=== PATIENT | female | born 1950 | race Two or more races ===

== ENCOUNTER 2023-04-30 20:32 | Inpatient (IN) | payer OTHER, MEDICAID ==
[~2023-04-30] VITALS: Ht 160 cm; Wt 177.8 kg
[2023-04-30] MEDS ORDERED: DexAMETHasone SOD PHOS 10MG/1ML VIAL INJ IV ONE (21:00)
[2023-04-30 22:09] LABS: Basophils # (auto) 0 10 ^3/uL (0-0.2); Basophils % (auto) 0.6 % (0.0-2.0); Eosinophils # (auto) 0 10 ^3/uL (0-0.8); Eosinophils % (auto) 0.2 % (0.0-7.0); Hemoglobin 16.1 g/dL (12.2-16.2); Lymphocytes # (auto) 0.6 10 ^3/uL (0.4-5.4); Lymphocytes % (auto) 14.6 % (10.0-50.0); Mean Corpuscular Hemoglobin 34.6 pg (28.0-32.0); Monocytes # (auto) 0.8 10 ^3/uL (0-1.3); Neutrophils % (auto) 67.6 % (37.0-80.0); Nucleated Red Blood Cells % 0.5 %; Red Blood Cells 4.64 10^6/uL (4.0-5.20); Red Cell Distribution Width 13.8 % (11.8-14.3); White Blood Cell 4.4 10^3/uL (4.4-10.8)
[2023-04-30 22:20] VITALS: PULSE 98; RESP 18; O2SAT 96
[2023-04-30 22:29] LABS: Alanine Aminotransferase 35 U/L (7-40); Albumin 3.9 g/dL (3.2-4.8); Alkaline Phosphatase 66 U/L (46-116); Anion Gap 8 (5-15); Aspartate Aminotransferase 54 U/L (13-40); BUN/Creatinine Ratio 10.3 (10.0-20.0); Bilirubin, Total 6.7 mg/dL (0.2-1.0); Blood Urea Nitrogen 9 mg/dL (9-23); Carbon Dioxide 25 mmol/L (20-30); Chloride 101 mmol/L (98-107); Glucose 201 mg/dL (74-106); Potassium 3.8 mmol/L (3.5-5.1); Sodium 134 mmol/L (136-145)
[2023-04-30 22:30] LABS: Lactic Acid w/Reflex 2.1 mmol/L (0.4-2.0); Total Protein 7.2 g/dL (5.7-8.2)
[2023-04-30 22:44] LABS: Rapid Influenza A Negative (Negative); Rapid Influenza B Negative (Negative)
[2023-04-30 22:45] LABS: COVID19 ANTIGEN SOFIA FIA POSITIVE (NEGATIVE)
[2023-04-30] MEDS ORDERED: DEXTROSE (50%) 50ML SYRG IV PRN (23:45)
[2023-04-30] MEDS ORDERED: ACETAMINOPHEN 500 MG TAB PO PRN (23:45)
[2023-04-30] MEDS ORDERED: ONDANSETRON HCL 4 MG/2 ML VIAL IV PRN (23:45)
[2023-04-30] MEDS ORDERED: DOCUSATE SOD 100 MG CAP PO PRN (23:45)
[2023-05-01] VITALS (9 sets, daily range): BP systolic 123–151; BP diastolic 77–92; PULSE 62–83; RESP 12–20; TEMP 98–98.3; O2SAT 94–98
[2023-05-01] MEDS: DOXYCYCLINE 100MG/250ML 250 ML IV SCH ×3 (00:33→21:51)
[2023-05-01] MEDS: SODIUM CHLORIDE 0.9% 1,000 ML IV SCH ×3 (00:33→22:08)
[2023-05-01 02:52] LABS: Urine Bacteria FEW /hpf (None Seen); Urine Blood Negative /uL (Negative); Urine Clarity Clear (Clear); Urine Color Yellow (Yellow); Urine Protein, UAD Negative (Negative); Urine Specific Gravity 1.012 (1.001-1.035); Urine WBC 4 /hpf (0 - 5)
[2023-05-01] MEDS ORDERED: NITROGLYCERIN 0.4 MG SL TAB SL PRN (03:15)
[2023-05-01] MEDS ORDERED: MORPHINE SULFATE INJ 2 MG/ml SYRG IV PRN (03:15)
[2023-05-01 06:13] LABS: Basophils # (auto) 0 10 ^3/uL (0-0.2); Eosinophils # (auto) 0 10 ^3/uL (0-0.8); Lymphocytes # (auto) 0.7 10 ^3/uL (0.4-5.4); Neutrophils # (auto) 2.9 10 ^3/uL (1.6-8.6); Nucleated Red Blood Cells % 0.4 %; White Blood Cell 3.8 10^3/uL (4.4-10.8)
[2023-05-01 06:15] LABS: Basophils % (auto) 0.4 % (0.0-2.0); Hematocrit 43.9 % (36.0-46.0); Lymphocytes % (auto) 17.2 % (10.0-50.0); Mean Corpuscular Hemoglobin 35.6 pg (28.0-32.0); Mean Corpuscular Hgb Conc. 36.4 g/dL (32.0-36.0); Mean Corpuscular Volume 97.8 fL (80.0-100.0); Monocytes # (auto) 0.3 10 ^3/uL (0-1.3); Monocytes % (auto) 6.8 % (0.0-12.0); Neutrophils % (auto) 75.6 % (37.0-80.0); Red Blood Cells 4.49 10^6/uL (4.0-5.20); Red Cell Distribution Width 13.7 % (11.8-14.3)
[2023-05-01 06:24] LABS: Alanine Aminotransferase 33 U/L (7-40); Alkaline Phosphatase 66 U/L (46-116); Anion Gap 9 (5-15); Blood Urea Nitrogen 10 mg/dL (9-23); Calcium 8.8 mg/dL (8.5-10.1); Carbon Dioxide 23 mmol/L (20-30); Chloride 104 mmol/L (98-107); Glucose 283 mg/dL (74-106); Potassium 3.6 mmol/L (3.5-5.1); Sodium 136 mmol/L (136-145)
[2023-05-01 06:25] LABS: Albumin 3.7 g/dL (3.2-4.8); Aspartate Aminotransferase 47 U/L (13-40); Bilirubin, Total 5.9 mg/dL (0.2-1.0)
[2023-05-01 06:26] LABS: Total Protein 6.9 g/dL (5.7-8.2)
[2023-05-01] MEDS: ACCU-CHEK COMFORT CURVE STRIP VI SCH ×4 (07:03→21:52)
[2023-05-01] MEDS: InsuLIN REG 1unit/0.01ml Soln (100units/ml) SC SCH ×3 (07:04→17:32)
[2023-05-01] MEDS: CHOLECALCIFEROL (VITD3) 2,000 UNIT CAP/TAB PO SCH (10:12)
[2023-05-01] MEDS: ASCORBIC ACID 1,000 MG TAB PO SCH (10:12)
[2023-05-01] MEDS: ZINC SULFATE 220mg CAP or TAB PO SCH (10:12)
[2023-05-01] MEDS: MULTIPLE VITAMIN TAB PO SCH (10:12)
[2023-05-01] MEDS: FAMOTIDINE (10MG/ML) 2ML VL IV SCH ×2 (10:13→21:50)
[2023-05-01] MEDS: ENOXAPARIN SOD 40 MG/0.4 ML SYRINGE SC SCH (10:13)
[2023-05-01] MEDS: BUDESONIDE (INHALATION) 180 MCG IH IN SCH ×2 (10:35→21:58)
[2023-05-01] MEDS: ALBUTEROL SULF HFA 90MCG INH 200DOSE IN PRN (10:40)
[2023-05-01] MEDS ORDERED: FURO40TA4 PO (15:06)
[2023-05-01] MEDS ORDERED: PANT40T PO (15:06)
[2023-05-01] MEDS ORDERED: ERTU15TA PO (15:06)
[2023-05-01] MEDS ORDERED: LISI40TA16 PO (15:06)
[2023-05-01] MEDS ORDERED: TRAZ-227 PO (15:06)
[2023-05-01] MEDS ORDERED: INSUINJ37 SC (15:06)
[2023-05-01] MEDS ORDERED: TENO1TAB PO (15:06)
[2023-05-01] MEDS ORDERED: INSU100I54 SC (15:06)
[2023-05-01] MEDS ORDERED: ROPI2TAB6 PO (15:06)
[2023-05-01] MEDS ORDERED: SEMA14TA2 PO (15:08)
[2023-05-01] MEDS: HYDROcodone-ACET 5/325MG TAB PO PRN (21:51)
[2023-05-01] MEDS ORDERED: DexAMETHasone SOD PHOS 10MG/1ML VIAL INJ IV SCH (22:00)
[2023-05-01] MEDS ORDERED: InsuLIN REG 1unit/0.01ml Soln (100units/ml) SC SCH (22:00)
[2023-05-02 05:06] VITALS: BP 127/71; PULSE 61; RESP 20; TEMP 98.6; O2SAT 96
[2023-05-02] MEDS: HYDROcodone-ACET 5/325MG TAB PO PRN (05:13)
[2023-05-02] MEDS: ACCU-CHEK COMFORT CURVE STRIP VI SCH ×3 (05:55→17:00)
[2023-05-02] MEDS: InsuLIN REG 1unit/0.01ml Soln (100units/ml) SC SCH ×3 (05:59→17:00)
[2023-05-02 06:14] LABS: Anion Gap 7 (5-15); Carbon Dioxide 26 mmol/L (20-30); Chloride 103 mmol/L (98-107); Sodium 136 mmol/L (136-145)
[2023-05-02 06:16] LABS: Calcium 8.8 mg/dL (8.7-10.4)
[2023-05-02 06:17] LABS: Basophils # (auto) 0 10 ^3/uL (0-0.2); Basophils % (auto) 0.2 % (0.0-2.0); Eosinophils # (auto) 0 10 ^3/uL (0-0.8); Hematocrit 45.2 % (36.0-46.0); Hemoglobin 15.8 g/dL (12.2-16.2); Lymphocytes # (auto) 0.7 10 ^3/uL (0.4-5.4); Lymphocytes % (auto) 17.9 % (10.0-50.0); Mean Corpuscular Volume 97.3 fL (80.0-100.0); Monocytes # (auto) 0.2 10 ^3/uL (0-1.3); Monocytes % (auto) 4.3 % (0.0-12.0); Neutrophils # (auto) 3.2 10 ^3/uL (1.6-8.6); Neutrophils % (auto) 77.6 % (37.0-80.0); Nucleated Red Blood Cells % 0.1 %; Red Blood Cells 4.64 10^6/uL (4.0-5.20); Red Cell Distribution Width 13.7 % (11.8-14.3); White Blood Cell 4.1 10^3/uL (4.4-10.8)
[2023-05-02 06:21] LABS: BUN/Creatinine Ratio 15.5 (10.0-20.0); Blood Urea Nitrogen 11 mg/dL (9-23); Glucose 277 mg/dL (74-106)
[2023-05-02 08:00] VITALS: BP 152/85; PULSE 60; PULSE 64; RESP 18; TEMP 97.6; O2SAT 94
[2023-05-02] MEDS: DOXYCYCLINE 100MG/250ML 250 ML IV SCH (09:02)
[2023-05-02] MEDS: FAMOTIDINE (10MG/ML) 2ML VL IV SCH (09:09)
[2023-05-02] MEDS: ZINC SULFATE 220mg CAP or TAB PO SCH (09:09)
[2023-05-02] MEDS: MULTIPLE VITAMIN TAB PO SCH (09:10)
[2023-05-02] MEDS: ASCORBIC ACID 1,000 MG TAB PO SCH (09:10)
[2023-05-02] MEDS: CHOLECALCIFEROL (VITD3) 2,000 UNIT CAP/TAB PO SCH (09:10)
[2023-05-02] MEDS: ENOXAPARIN SOD 40 MG/0.4 ML SYRINGE SC SCH (09:11)
[2023-05-02] MEDS ORDERED: DOXY-448 PO (09:53)
[2023-05-02] MEDS ORDERED: PRED20TA2 PO (09:53)
[2023-05-02 10:00] VITALS: PULSE 60; RESP 16; O2SAT 97
[2023-05-02] MEDS: BUDESONIDE (INHALATION) 180 MCG IH IN SCH (10:00)
[2023-05-02] MEDS: ALBUTEROL SULF HFA 90MCG INH 200DOSE IN PRN (10:00)
[2023-05-02 10:23] VITALS: BP 152/85; PULSE 64; RESP 18; TEMP 97.6; O2SAT 94
[2023-05-02 12:00] VITALS: BP 165/95; PULSE 79; RESP 18; TEMP 97.6; O2SAT 97
== END 2023-05-02 18:00 | disposition home or self-care (01) | DRG 177 ==
LOC: EDBD 20:32 → ER 20:32 → TELE 05-01 03:02 → TELE-CENTR 05-01 12:50
PROVIDERS: ADMIT Nurse Practitioner Family; ATTEND Internal Medicine Pulmonary Disease
DX: U07.1 COVID-19 (principal); J12.82 Pneumonia due to coronavirus disease 2019; J96.01 Acute respiratory failure with hypoxia; J44.0 Chronic obstructive pulmonary disease with (acute) lower respiratory infection; Z68.44 Body mass index [BMI] 60.0-69.9, adult; I10 Essential (primary) hypertension; E66.01 Morbid (severe) obesity due to excess calories; E11.65 Type 2 diabetes mellitus with hyperglycemia; Z88.0 Allergy status to penicillin
CPT/HCPCS: 36415; 71045; 71275; 80048; 80053; 81001; 82306; 82962; 83605; 84443; 85025; 85379; 87040; 87426; 87804; 93005; 93970; 94640; 96374; G0378; J1100; J1815; J3490